=== PATIENT | male | born 1990 | race Caucasian/White ===

== ENCOUNTER 2025-03-31 11:25 | Emergency (ER) | payer OTHER ==
[~2025-03-31] VITALS: Ht 175.3 cm; Wt 113.4 kg
[2025-03-31] MEDS ORDERED: CLOP75 PO (11:42)
[2025-03-31] MEDS ORDERED: ATOR40TA PO (11:43)
[2025-03-31] MEDS ORDERED: ATEN50 PO (11:43)
[2025-03-31 12:30] LABS: BASOPHILS ABSOLUTE AUTO 0.07 K/mm3 (0.00-0.23); BASOPHILS PERCENT AUTO 1 % (0-2); EOSINOPHILS ABSOLUTE AUTO 0.22 K/mm3 (0.00-0.68); EOSINOPHILS PERCENT AUTO 3 % (0-6); Hematocrit 40.8 % (37.0-53.0); Hemoglobin 14.2 g/dL (13.5-17.5); IMMATURE GRAN ABSOLUTE AUTO 0.02 K/mm3 (0.00-0.10); IMMATURE GRAN PERCENT AUTO 0 % (0-1); LYMPHOCYTES ABSOLUTE AUTO 2.17 K/mm3 (0.84-5.20); LYMPHOCYTES PERCENT AUTO 30 % (21-46); MONOCYTES ABSOLUTE AUTO 0.73 K/mm3 (0.16-1.47); MONOCYTES PERCENT AUTO 10 % (4-13); Mean Corpuscular HGB Conc 34.8 g/dL (31.5-36.5); Mean Corpuscular Volume 88 fL (80-100); NEUTROPHILS ABSOLUTE AUTO 4.02 K/mm3 (1.96-9.15); NEUTROPHILS PERCENT AUTO 56 % (41-73); NRBC ABSOLUTE 0.00 K/mm3 (0.00-0.02); NRBC Auto 0.0 /100 WBC (0.0-0.2); Platelet Count 264 K/mm3 (150-400); RDW Coefficient Variation 13.0 % (11.7-14.2); RDW Standard Deviation 41.7 fL (35.1-46.3)
[2025-03-31 13:09] LABS: Alanine Aminotransfer (ALT/SGP 72.0 U/L (12-78); Albumin, Blood 4.2 g/dL (3.4-5.0); Albumin/Globulin Ratio 1.1 (0.8-1.8); Anion Gap 8.0 mmol/L (3-11); Aspartate Aminotrans (AST/SGOT 31.0 U/L (12-37); Bilirubin, Total 0.5 mg/dL (0.1-1.0); Blood Urea Nitrogen 12.0 mg/dL (8-24); CO2, Blood 26.0 mmol/L (21-32); Calcium, Blood 8.9 mg/dL (8.5-10.1); Chloride, Blood 107.0 mmol/L (98-108); Creatinine, Blood 0.81 mg/dL (0.60-1.20); Globulin, Blood 3.7 g/dL (2.2-4.0); Glucose, Blood 94.0 mg/dL (70-99); Potassium, Blood 3.9 mmol/L (3.5-5.5); Sodium, Blood 137.0 mmol/L (136-145); Total Protein, Blood 7.9 g/dL (6.4-8.2)
[2025-03-31 13:23] LABS: Source, Urine Clean Catch
[2025-03-31 13:29] LABS: Bilirubin, Urine Neg (Neg); Glucose Qualitative, Urine Neg (Neg); Ketones, Urine Neg (Neg); Leukocyte Esterase, Urine Neg (Neg); Protein, Urine Neg (Neg); Specific Gravity, Urine 1.015 (1.003-1.022); Urobilinogen, Urine NORM (Normal)
[2025-03-31 13:47] LABS: Color, Urine Pale Yellow (P-Yellow)
[2025-03-31] MEDS ORDERED: MONDOXYNE NL100 MG PO (14:23)
[2025-03-31] MEDS ORDERED: CefTRIAXone Sodium 1,000 MG in NS 100 ML IV ONE (14:25)
== END 2025-03-31 14:51 | disposition home or self-care (01) ==
LOC: ER 11:25
PROVIDERS: Physician Assistant
DX: N45.1 Epididymitis (principal)
CPT/HCPCS: 76870; 80053; 81003; 83690; 85025; 96374; 99284-25; J0696

== ENCOUNTER 2025-06-03 08:29 | Day surgery (SDC) | payer OTHER ==
[~2025-06-03 08:29] MED LIST: ATEN50 PO; ATOR40TA PO; CLOP75 PO; MONDOXYNE NL100 MG PO
== END 2025-06-03 22:00 | disposition home or self-care (01) ==
LOC: CT 08:29
DX: Q24.5 Malformation of coronary vessels (principal); I10 Essential (primary) hypertension; E78.5 Hyperlipidemia, unspecified; E66.9 Obesity, unspecified; Z68.38 Body mass index [BMI] 38.0-38.9, adult; Z79.82 Long term (current) use of aspirin; Z79.02 Long term (current) use of antithrombotics/antiplatelets; Z79.899 Other long term (current) drug therapy; Z88.8 Allergy status to other drugs, medicaments and biological substances; Z87.39 Personal history of other diseases of the musculoskeletal system and connective tissue
CPT/HCPCS: 75574; Q9967

== ENCOUNTER 2025-06-12 08:59 | Day surgery (SDC) | payer OTHER ==
[2025-06-12 09:21] VITALS: BP 116/79
[2025-06-12] MEDS ORDERED: ASPI81CH PO (09:25)
[2025-06-12] MEDS ORDERED: ZYRTEC10 M2 PO (09:26)
[2025-06-12] MEDS ORDERED: ATOR10 PO (09:26)
[2025-06-12] MEDS ORDERED: Lidocaine 2%-Epineph 1:100000 20 ML MDV ONE (10:05)
[2025-06-12 10:58] VITALS: BP 116/94
--- NOTE | 2025-06-12 11:07 | NUR ---
Pt back to recovery room. VS taken. Dr Solis at bedside to update pt and father about instructions. Bandaid to loop explant site. Pt sts has follow up for wound check.
== END 2025-06-12 11:10 | disposition home or self-care (01) ==
LOC: MHTC 08:59
DX: Z45.09 Encounter for adjustment and management of other cardiac device (principal); I25.41 Coronary artery aneurysm; I45.10 Unspecified right bundle-branch block; I10 Essential (primary) hypertension; E78.5 Hyperlipidemia, unspecified; E66.9 Obesity, unspecified; Z68.38 Body mass index [BMI] 38.0-38.9, adult; Z87.39 Personal history of other diseases of the musculoskeletal system and connective tissue; Z79.02 Long term (current) use of antithrombotics/antiplatelets; Z79.82 Long term (current) use of aspirin; Z79.899 Other long term (current) drug therapy
CPT/HCPCS: 33286